=== PATIENT | male | born 1960 | race Caucasian/White ===

== ENCOUNTER 2016-08-30 01:54 | Emergency (ER) | payer OTHER, MEDICAID ==
[~2016-08-30] VITALS: Ht 157.5 cm; Wt 70.3 kg
[2016-08-30 02:00] VITALS: BP_SYST 131
[2016-08-30 02:40] LABS: BASOPHILS # (AUTO) 0.1 K/uL (0.0-0.2); BASOPHILS % (AUTO) 1.3 % (0.0-2.0); EOSINOPHILS # (AUTO) 0.1 K/uL (0.0-0.4); EOSINOPHILS % (AUTO) 0.8 % (0.0-4.0); HEMOGLOBIN 14.4 g/dL (14.0-18.0); LYMPHOCYTES # (AUTO) 0.7 K/uL (1.0-5.5); LYMPHOCYTES % (AUTO) 6.9 % (20.5-51.5); MEAN CORPUSCULAR HEMOGLOBIN 30 pg (27-31); MEAN CORPUSCULAR HGB CONC 33 % (32-36); MEAN CORPUSCULAR VOLUME 88 fL (79.0-98.0); MONOCYTES # (AUTO) 0.9 K/uL (0.0-1.0); MONOCYTES % (AUTO) 8.9 % (1.7-9.3); NEUTROPHILS # (AUTO) 8.5 K/uL (1.8-7.7); NEUTROPHILS % (AUTO) 82.1 % (40.0-70.0); PLATELET COUNT (AUTO) 159 K/uL (130-430); RED BLOOD CELL COUNT(AUTO) 4.86 MIL/uL (4.2-6.2); RED CELL DISTRIBUTION WIDTH 12.9 % (9.0-15.0); WHITE BLOOD COUNT (AUTO) 10.3 K/uL (4.8-10.8)
[2016-08-30 02:50] LABS: CALCIUM 8.5 mg/dL (8.4-11.0); CREATININE 1.15 mg/dL (0.55-1.30); POTASSIUM 3.5 mmol/L (3.5-5.1)
[2016-08-30 03:06] LABS: THYROID STIMULATING HORMONE 1.01 uIu/mL (0.34-4.82); TOTAL BILIRUBIN 0.4 mg/dL (0.0-1.0); TOTAL PROTEIN, SERUM 8.1 g/dL (6.4-8.3)
[2016-08-30] MEDS ORDERED: ONDANSETRON 4 MG ODT TAB PO ONE (04:15)
[2016-08-30 04:42] VITALS: BP_SYST 130
== END 2016-08-30 04:42 | disposition home or self-care (01) ==
LOC: SED 01:54
DX: A08.4 Viral intestinal infection, unspecified (principal); F79 Unspecified intellectual disabilities
CPT/HCPCS: 36415; 80053; 84443; 85025; 99284; Q0162

== ENCOUNTER 2018-03-25 18:02 | Emergency (ER) | payer OTHER, MEDICAID ==
[~2018-03-25] VITALS: Ht 129.5 cm; Wt 63.5 kg
[~2018-03-25 18:02] MED LIST: CETI1SOL48 PO; OLAN10TA32 PO
[2018-03-25 18:15] VITALS: BP_SYST 145
--- NOTE | 2018-03-25 18:30 | NUR ---
Patient to ER bed 04 to gown for evaluation. Side rails up.
--- NOTE | 2018-03-25 18:40 | NUR ---
Pt C/O swelling and limping on LT leg x 1 day. Caregiver states she noticed that the pt's leg was swollen and is having more difficulty ambulating this morning. Pt resides in a SNF and is non verbal due to mental retardation. Caregiver is at bedside to answer any questions. Vital signs are stable at this time.
--- NOTE | 2018-03-25 19:28 | NUR ---
Pt resting quietly in bed. Report given to Adolph MCGRAW.
--- NOTE | 2018-03-25 19:48 | NUR ---
ER Dr. Gould at bedside examining patient.
--- NOTE | 2018-03-25 20:23 | NUR ---
Xray at bedside. Pt tolerated well.
--- NOTE | 2018-03-25 21:10 | NUR ---
Posterior Short splint applied to left leg. Palpable pulse noted. Capillary refill <3 seconds. Patient has ability to move non-splinted digits. Has sensation present to affected site. Skin color within normal limits. Applied for pain management control.
[2018-03-25 21:20] VITALS: BP_SYST 136
--- NOTE | 2018-03-25 21:20 | NUR ---
Patient given written and verbal discharge instructions and verbalizes understanding. ER MD discussed with patient the results and treatment provided. Patient in stable condition. ID arm band removed. Rx of Tylenol with Codeine given. Patient educated on pain management and to follow up with PMD. Pain Scale 0. Opportunity for questions provided and answered. Medication side effect fact sheet provided.
== END 2018-03-25 21:20 | disposition home or self-care (01) ==
LOC: SED 18:02
DX: S82.832A Other fracture of upper and lower end of left fibula, initial encounter for closed fracture (principal); R03.0 Elevated blood-pressure reading, without diagnosis of hypertension; X58.XXXA Exposure to other specified factors, initial encounter; Y93.89 Activity, other specified; Y92.89 Other specified places as the place of occurrence of the external cause; Y99.8 Other external cause status
CPT/HCPCS: 99284

== ENCOUNTER 2018-04-04 15:34 | Emergency (ER) | payer OTHER, MEDICAID ==
[~2018-04-04] VITALS: Ht 157.5 cm; Wt 64.9 kg
--- NOTE | 2018-04-04 15:40 | NUR ---
Pt wheeled to bed 7
[2018-04-04 15:42] VITALS: BP_SYST 119
--- NOTE | 2018-04-04 15:45 | NUR ---
Patient to triage with caregivers for evaluation of left foot/leg problem. Patient was seen here on 03/25/18 for similar complaint and has follow up on Friday with orthopedics, but was brought in today for evaluation. Patient is awake, alert and non-verbal(baseline), vital signs stable, respirations even and unlabored, skin warm and dry to touch. Caregivers at bedside. Awaiting evaluation by ER MD, will continue to observe and assess.
--- NOTE | 2018-04-04 15:55 | NUR ---
ER at bedside examining patient.
--- NOTE | 2018-04-04 16:15 | NUR ---
X-ray at bedside for films.
--- NOTE | 2018-04-04 17:10 | NUR ---
Splint being applied, patient tolerating well.
[2018-04-04 17:20] VITALS: BP_SYST 120
--- NOTE | 2018-04-04 17:20 | NUR ---
Patient given written and verbal discharge instructions and verbalizes understanding. ER MD discussed with patient the results and treatment provided. Patient in stable condition. ID arm band removed. No RX given. Patient educated on pain management and to follow up with PMD. Pain Scale 0. Opportunity for questions provided and answered. Medication side effect fact sheet provided. Patient left ER in no acute distress via wheelchair with staff from SNF. Patient tolerating splint, neuro/circ intact.
== END 2018-04-04 17:20 | disposition home or self-care (01) ==
LOC: SED 15:34
DX: S82.832A Other fracture of upper and lower end of left fibula, initial encounter for closed fracture (principal); X58.XXXA Exposure to other specified factors, initial encounter; Y93.89 Activity, other specified; Y92.89 Other specified places as the place of occurrence of the external cause; Y99.8 Other external cause status
CPT/HCPCS: 74018; 99283

== ENCOUNTER 2018-12-18 19:36 | Emergency (ER) | payer OTHER, MEDICAID ==
[~2018-12-18] VITALS: Ht 152.4 cm; Wt 61.2 kg
[2018-12-18 19:40] VITALS: BP_SYST 127
[2018-12-18] MEDS ORDERED: NACL 0.9% 1,000 ML IV ONE (20:45)
[2018-12-18 21:17] LABS: BILIRUBIN,URINE NEGATIVE (NEGATIVE); BLOOD, URINE 3+ (NEGATIVE); CLARITY/URINE SL CLOUDY (CLEAR); COLOR,URINE YELLOW (YELLOW); GLUCOSE,URINE NEGATIVE (NEGATIVE); KETONES,URINE NEGATIVE (NEGATIVE); LEUKOCYTE ESTERASE ,URINE 1+ (NEGATIVE); NITRITE, URINE NEGATIVE (NEGATIVE); PROTEIN URINE 3+ (NEGATIVE); UROBILINOGEN,URINE 0.2 (0.2-1.0)
[2018-12-18 21:26] LABS: BASOPHILS # (AUTO) 0.1 K/uL (0.0-0.2); EOSINOPHILS # (AUTO) 1.1 K/uL (0.0-0.4); EOSINOPHILS % (AUTO) 11.5 % (0.0-4.0); HEMATOCRIT 36.3 % (36-54); HEMOGLOBIN 11.8 g/dL (14.0-18.0); LYMPHOCYTES # (AUTO) 1.8 K/uL (1.0-5.5); LYMPHOCYTES % (AUTO) 19.1 % (20.5-51.5); MEAN CORPUSCULAR HEMOGLOBIN 28 pg (27-31); MEAN CORPUSCULAR HGB CONC 33 % (32-36); MEAN CORPUSCULAR VOLUME 87 fL (79.0-98.0); MONOCYTES # (AUTO) 0.8 K/uL (0.0-1.0); MONOCYTES % (AUTO) 8.7 % (1.7-9.3); NEUTROPHILS # (AUTO) 5.6 K/uL (1.8-7.7); NEUTROPHILS % (AUTO) 59.7 % (40.0-70.0); PLATELET COUNT (AUTO) 147 K/uL (130-430); RED BLOOD CELL COUNT(AUTO) 4.17 MIL/uL (4.2-6.2); RED CELL DISTRIBUTION WIDTH 17.5 % (9.0-15.0); WHITE BLOOD COUNT (AUTO) 9.3 K/uL (4.8-10.8)
[2018-12-18 21:32] LABS: BACTERIA,URINE MANY /HPF (None Seen); MUCUS,URINE None Seen /LPF (None Seen); RBC,URINE 0-3 /HPF (0-3)
[2018-12-18 21:44] LABS: CALCIUM 8.9 mg/dL (8.4-11.0); CREATININE 0.83 mg/dL (0.55-1.30); POTASSIUM 3.7 mmol/L (3.5-5.1)
[2018-12-18] MEDS ORDERED: cefTRIAXone 1 GM in D5W 50 ML IV ONE (21:45)
[2018-12-18 21:49] LABS: ALBUMIN 3.1 g/dL (3.4-4.8); TOTAL BILIRUBIN 0.2 mg/dL (0.0-1.0)
[2018-12-18] MEDS ORDERED: cefTRIAXone 1 GM VIAL ONE (21:56)
[2018-12-18 22:00] VITALS: BP_SYST 116
== END 2018-12-18 22:00 | disposition home or self-care (01) ==
LOC: SED 19:36
DX: N39.0 Urinary tract infection, site not specified (principal); Z79.899 Other long term (current) drug therapy
CPT/HCPCS: 36415; 80053; 81000; 83605; 85025; 87040; 87086; 96365; 99283; J0696

== ENCOUNTER 2019-11-25 16:26 | Emergency (ER) | payer OTHER, MEDICAID ==
[~2019-11-25] VITALS: Ht 129.5 cm; Wt 67.6 kg
[2019-11-25 17:15] VITALS: BP_SYST 132
[2019-11-25 19:22] VITALS: BP_SYST 127
[2019-11-25 19:29] LABS: CLARITY/URINE TURBID (CLEAR); COLOR,URINE YELLOW (YELLOW); PH,URINE 6.5 (5.0-8.0)
[2019-11-25 19:30] LABS: BILIRUBIN,URINE NEGATIVE (NEGATIVE); BLOOD, URINE 3+ (NEGATIVE); GLUCOSE,URINE NEGATIVE (NEGATIVE); KETONES,URINE NEGATIVE (NEGATIVE); LEUKOCYTE ESTERASE ,URINE 3+ (NEGATIVE); NITRITE, URINE NEGATIVE (NEGATIVE); PROTEIN URINE 2+ (NEGATIVE); UROBILINOGEN,URINE 0.2 (0.2-1.0)
[2019-11-25 19:36] LABS: BACTERIA,URINE MODERATE /HPF (None Seen); WBC,URINE >100 /HPF (0-3)
[2019-11-25 19:37] LABS: URINE AMORPHOUS PHOSPHATES 4+ /HPF (None Seen)
== END 2019-11-25 19:22 | disposition home or self-care (01) ==
LOC: SED 16:26
DX: N30.90 Cystitis, unspecified without hematuria (principal)
CPT/HCPCS: 81000-TC; 87086; 99284

== ENCOUNTER 2020-04-19 15:07 | Emergency (ER) | payer OTHER, MEDICAID ==
[~2020-04-19] VITALS: Ht 149.9 cm; Wt 74.8 kg
[2020-04-19 15:23] VITALS: BP_SYST 108
--- NOTE | 2020-04-19 16:57 | NUR ---
Patient to ER bed 05 to gown for evaluation. Side rails up.
--- NOTE | 2020-04-19 17:08 | NUR ---
PT BIB CAREGIVER FOR C/O PAINFUL URINATION AND ABD PAIN X 2 DAYS. PT HAS A HX OF COGNITIVE D/O AND IS A POOR HISTORIAN HOWEVER STATES HIS STOMACH HURTS HIM AND IS GUARDING HIS LOWER ABD. AAO APPROPRIATE FOR COGNITIVE STATE, V/S STABLE
--- NOTE | 2020-04-19 17:14 | NUR ---
ER DR. HERRERA AT THE BEDSIDE EVALUATING PT
--- NOTE | 2020-04-19 17:49 | NUR ---
BLOOD BEING DRAWN, PT TOLERATING IT WELL.
[2020-04-19] MEDS: SULFAMETHOXAZOLE/TRIMETHOPR DS 1 TABLET PO ONE (18:05)
[2020-04-19 18:12] LABS: HEMOGLOBIN 11.7 g/dL (14.0-18.0)
[2020-04-19 18:33] LABS: MEAN CORPUSCULAR HEMOGLOBIN 27 pg (27-31); MEAN CORPUSCULAR HGB CONC 32 % (32-36); MEAN CORPUSCULAR VOLUME 84 fL (79.0-98.0); PLATELET COUNT (AUTO) 213 K/uL (130-430); RED BLOOD CELL COUNT(AUTO) 4.38 MIL/uL (4.2-6.2); RED CELL DISTRIBUTION WIDTH 15.1 % (9.0-15.0); WHITE BLOOD COUNT (AUTO) 14.9 K/uL (4.8-10.8)
[2020-04-19 18:35] LABS: PROTHROMBIN TIME 9.9 SECS (9.5-12.5)
[2020-04-19 18:56] LABS: BAND % (MANUAL) 40 % (0-6); EOSINOPHILS % (MANUAL) 4 % (0-7); LYMPHOCYTES % (MANUAL) 6 % (20-46); MONOCYTES % (MANUAL) 6 % (0-11)
[2020-04-19 18:57] LABS: BASOPHILS % (MANUAL) 0 % (0-2)
[2020-04-19 19:17] LABS: BILIRUBIN,URINE 1+ (NEGATIVE); BLOOD, URINE 2+ (NEGATIVE); CLARITY/URINE TURBID (CLEAR); COLOR,URINE YELLOW (YELLOW); GLUCOSE,URINE NEGATIVE (NEGATIVE); KETONES,URINE NEGATIVE (NEGATIVE); LEUKOCYTE ESTERASE ,URINE 3+ (NEGATIVE); NITRITE, URINE NEGATIVE (NEGATIVE); PROTEIN URINE 2+ (NEGATIVE); UROBILINOGEN,URINE 0.2 (0.2-1.0)
--- NOTE | 2020-04-19 19:32 | NUR ---
REPORT GIVEN TO MARILUZ DUVALL
[2020-04-19 19:36] LABS: POTASSIUM 4.1 mmol/L (3.5-5.1)
[2020-04-19 19:37] LABS: ALBUMIN 2.8 g/dL (3.4-4.8); CREATININE 0.92 mg/dL (0.55-1.30); TOTAL BILIRUBIN 0.8 mg/dL (0.0-1.0)
[2020-04-19 19:49] LABS: BACTERIA,URINE MANY /HPF (None Seen); WBC,URINE >100 /HPF (0-3)
[2020-04-19 19:50] LABS: MUCUS,URINE None Seen /LPF (None Seen); URINE AMORPHOUS PHOSPHATES 4+ /HPF (None Seen)
[2020-04-19 20:21] VITALS: BP_SYST 108
--- NOTE | 2020-04-19 20:22 | NUR ---
Patient given written and verbal discharge instructions and verbalizes understanding. DR. JOEY KUMAR discussed with patient the results and treatment provided. Patient in stable condition. ID arm band removed. Rx of BACTRIM given. Patient educated on pain management and to follow up with PMD. Pain Scale 0/10. Opportunity for questions provided and answered. Medication side effect fact sheet provided.
== END 2020-04-19 20:22 | disposition home or self-care (01) ==
LOC: SED 15:07
DX: N39.0 Urinary tract infection, site not specified (principal)
CPT/HCPCS: 36415; 71045; 80053; 81000-TC; 83605; 85007; 85027; 85610-TC; 85730-TC; 87040-TC; 87086; 93005; 99285